=== PATIENT | male | born 1940 | race Caucasian/White ===

== ENCOUNTER 2016-08-02 18:34 | Emergency (ER) | payer OTHER ==
[~2016-08-02] VITALS: Ht 188 cm; Wt 88.8 kg
[~2016-08-02 18:34] MED LIST: ARICEPT23 MG PO; ARTIFICIAL TEAR15 M1 RIGHT EYE; ATIVAN0.5 MG PO; BETHANECHOL CHL25 MG PO; CIPRO500 MG PO; COMBIGAN O20 DROP/5 RIGHT EYE; CYANOCOBALAM1000 MCG PO; DEPAKOTE500 MG PO; DULCOLAX10 MG PR; FINASTERIDE5 MG PO; FLEET ENEMA-AD118 ML PR; HYTRIN1 MG PO; INDERAL60 MG PO; LEXAPRO10 MG PO; MELOXICAM7.5 MG PO; METHENAMINE HIPP1 G1 PO; OMEPRAZOLE20 MG PO; PHILLIPS'400 MG/5 M PO; PROSCAR5 MG PO; SEROQUEL12.5 MG PO; TAMSULOSIN HCL0.4 MG PO; TYLENOL REGULA325 MG PO; VITAMIN D5000 UNI1 PO
[2016-08-02 19:39] LABS: HEMATOCRIT 44.9 % (38.0-50.0); MCH 32.7 PG (29.0-34.0); MCHC 33.6 G/DL (30.0-36.0); MCV 97.2 FL (86-99); MEAN PLAT.VOLUME 9.9 uM^3 (9.0-12.4); PLATELET COUNT 147 K/uL (156-360); RBC DIS.WIDTH-CV 12.9 % (11.8-14.6); RBC DIS.WIDTH-SD 44.5 % (39-53); RED BLOOD COUNT 4.62 M/uL (4.00-5.50); WHITE BLOOD COUNT 6.5 K/uL (4.1-10.2)
[2016-08-02 19:50] LABS: CHLORIDE 103 mEq/L (99-109); POTASSIUM 4.3 mEq/L (3.7-5.4); SODIUM 139 mEq/L (136-147)
[2016-08-02 19:52] LABS: GLUCOSE 187 mg/dL (70-99)
[2016-08-02 19:53] LABS: ANION GAP 11 MEQ/L (2-14)
[2016-08-02 19:54] LABS: TOTAL BILIRUBIN 0.3 mg/dL (0.0-1.0)
[2016-08-02 19:55] LABS: ALKALINE PHOSPHATASE 56 IU/L (3-129); SERUM ETHYL ALCOHOL < 10 mg/dL
[2016-08-02 19:56] LABS: GFR ESTIMATE (CALCULATED) > 59 mL/min/
[2016-08-02 19:57] LABS: UREA NITROGEN (BUN) 20 mg/dL (9-23)
[2016-08-02 20:07] LABS: ADD MIUA? YES; BILIRUBIN NEGATIVE; BLOOD NEGATIVE; COLOR YELLOW ((YELLOW)); GLUCOSE (STRIP) 500; KETONES TRACE; LEUKOCYTES TRACE; NITRITE NEGATIVE; PH, URINE 7.5 (5-8); PROTEIN (STRIP) NEGATIVE; SPECIFIC GRAVITY 1.015 (1.000-1.030); UROBILINOGEN 0.2 MG/DL (0.2-1.0)
[2016-08-02 20:17] LABS: BACTERIA NONE SEEN /HPF; CASTS NONE SEEN /LPF; CRYSTALS NONE SEEN; EPITHELIAL CELLS RARE /HPF; MUCUS NONE SEEN /LPF; PATHOLOGICAL CAST NONE SEEN; RED BLOOD CELLS 0-5 /HPF (0-5); SMALL ROUND CELL NONE SEEN; WHITE BLOOD CELLS 0-5 /HPF (0-5); YEAST-LIKE CELL NONE SEEN
[2016-08-02 21:33] VITALS: BP 159/80
== END 2016-08-02 21:34 ==
LOC: EME 18:34
PROVIDERS: Emergency Medicine
DX: F03.90 Unspecified dementia, unspecified severity, without behavioral disturbance, psychotic disturbance, mood disturbance, and anxiety (principal); I10 Essential (primary) hypertension; Z87.891 Personal history of nicotine dependence
CPT/HCPCS: 80053; 81003; 85027; 90837; G0480

== ENCOUNTER → 2016-08-28 | Outpatient (CLI) | payer OTHER | LOC: RAD 09:13 | DX: I25.10 Atherosclerotic heart disease of native coronary artery without angina pectoris (principal); I73.9 Peripheral vascular disease, unspecified | CPT/HCPCS: 75635 ==

== ENCOUNTER 2016-10-20 08:01 | Day surgery (SDC) | payer OTHER ==
[2016-10-18 09:47] LABS: POINT-OF-CARE METER ID UU13113696
[~2016-10-20] VITALS: Ht 190.5 cm; Wt 78.5 kg
[~2016-10-20 08:01] MED LIST changes: +ATIVAN1 MG PO; +CILOSTAZOL100 MG PO; +FLOMAX0.4 MG PO; +HIPREX1 GM PO; +LUMIGAN 0.50 DROP/22 RIGHT EYE; +MOBIC7.5 MG PO; +REMERON15 M2 PO; +TRAZODONE HCL50 MG PO; +TRENTAL400 MG PO; +URECHOLINE25 MG PO
== END 2016-10-20 13:15 ==
LOC: CATH 08:01
PROVIDERS: Surgery
PROC: B41D1ZZ Fluoroscopy of Aorta and Bilateral Lower Extremity Arteries using Low Osmolar Contrast (ICD-10-PCS; principal; 2016-10-20)
DX: I70.222 Atherosclerosis of native arteries of extremities with rest pain, left leg (principal); I70.92 Chronic total occlusion of artery of the extremities; F17.210 Nicotine dependence, cigarettes, uncomplicated
CPT/HCPCS: 82948; C1760; C1769; C1894; J1200; J1644; J2250; J3010; S0020